=== PATIENT | female | born 1955 | race Hispanic/Latino ===

== ENCOUNTER 2019-03-25 01:20 | Emergency (ER) | payer OTHER ==
[2019-03-25] MEDS ORDERED: ONDANSETRON ODT 4 MG TAB ONE (01:40)
[2019-03-25] MEDS ORDERED: HYDROCODONE/ACETAMINOPHEN 5/325 MG TAB ONE (01:41)
[2019-03-25] MEDS ORDERED: TETANUS/DIPHTHERIA TOXOID [ADULT] 0.5 ML VIAL IM ONE (01:57)
== END 2019-03-25 03:39 | disposition home or self-care (01) ==
LOC: EDH 01:20
DX: S62.356A Nondisplaced fracture of shaft of fifth metacarpal bone, right hand, initial encounter for closed fracture (principal); S09.8XXA Other specified injuries of head, initial encounter; I10 Essential (primary) hypertension; W10.8XXA Fall (on) (from) other stairs and steps, initial encounter; Y93.89 Activity, other specified; Y92.89 Other specified places as the place of occurrence of the external cause; Y99.8 Other external cause status
CPT/HCPCS: 70450; 73110; 73130; 90471; 90714

== ENCOUNTER 2020-04-20 21:35 | Emergency (ER) | payer OTHER ==
[2020-04-20] MEDS ORDERED: CLINDAMYCIN HCL 150 MG CAP ONE (22:04)
[2020-04-20] MEDS ORDERED: TRAMADOL HCL 50 MG TABLET ONE (22:05)
[2020-04-20] MEDS ORDERED: TETANUS/DIPHTHERIA TOXOID [ADULT] 0.5 ML VIAL IM ONE ×2 (22:05→22:13)
== END 2020-04-20 23:12 | disposition home or self-care (01) ==
LOC: EDH 21:35
DX: S63.501A Unspecified sprain of right wrist, initial encounter (principal); S80.211A Abrasion, right knee, initial encounter; S60.410A Abrasion of right index finger, initial encounter; L03.116 Cellulitis of left lower limb; I10 Essential (primary) hypertension; E11.9 Type 2 diabetes mellitus without complications; W01.0XXA Fall on same level from slipping, tripping and stumbling without subsequent striking against object, initial encounter; Y93.89 Activity, other specified; Y92.89 Other specified places as the place of occurrence of the external cause; Y99.8 Other external cause status
CPT/HCPCS: 29125; 73080; 73110; 73562; 90471; 90714

== ENCOUNTER 2020-04-28 13:14 | Emergency (ER) | payer OTHER ==
[2020-04-28 13:54] LABS: BASOPHILS % (AUTO) 0.4 % (0.0-5.0); EOSINOPHILS % (AUTO) 3.8 % (0.0-8.0); HEMATOCRIT 37.9 % (36-48); LYMPHOCYTES % (AUTO) 33.8 % (21.0-51.0); MEAN CORPUSCULAR HEMOGLOBIN 30.7 pg (27.0-33.0); MEAN CORPUSCULAR HGB CONC 34.3 g/dL (32.0-36.0); MEAN CORPUSCULAR VOLUME 89.4 fL (79-99); NEUTROPHILS % (AUTO) 55.8 % (40.0-77.0); PLATELET COUNT (AUTO) 240 K/uL (130-400); RED BLOOD CELL COUNT(AUTO) 4.24 MIL/uL (4.00-5.50); RED CELL DISTRIBUTION WIDTH 12.8 % (11.0-15.5); WHITE BLOOD COUNT (AUTO) 5.3 K/uL (4.8-10.8)
[2020-04-28] MEDS ORDERED: DEXAMETHASONE SOD PHOSPHATE 4 MG/ML 1ML VIAL ONE (13:56)
[2020-04-28] MEDS ORDERED: DiphenhydrAMINE HCL 50 MG/ML VIAL ONE (13:56)
[2020-04-28] MEDS ORDERED: FAMOTIDINE/PF 20 MG/2 ML VIAL IV ONE (13:57)
[2020-04-28 14:13] LABS: POTASSIUM 3.4 mmol/L (3.5-5.1)
[2020-04-28 14:17] LABS: ALBUMIN 3.6 g/dL (3.5-5.0); BILIRUBIN,TOTAL 0.9 mg/dL (0.2-1.0); TOTAL PROTEIN, SERUM 7.8 g/dL (6.0-8.3)
== END 2020-04-28 14:49 ==
LOC: EDH 13:14
DX: T78.40XA Allergy, unspecified, initial encounter (principal); E11.9 Type 2 diabetes mellitus without complications; I10 Essential (primary) hypertension; Z88.1 Allergy status to other antibiotic agents; X58.XXXA Exposure to other specified factors, initial encounter
CPT/HCPCS: 36415; 80053; 85025; 96374; 96375; 99284; J1100; J1200; J3490

== ENCOUNTER → 2023-09-10 | Outpatient (CLI) | payer OTHER | END | disposition home or self-care (01) | LOC: RAH 09:02 | PROVIDERS: ATTEND Internal Medicine | DX: K76.0 Fatty (change of) liver, not elsewhere classified (principal); R16.2 Hepatomegaly with splenomegaly, not elsewhere classified; R79.89 Other specified abnormal findings of blood chemistry; N28.1 Cyst of kidney, acquired | CPT/HCPCS: 76700 ==